=== PATIENT | female | born 1985 | race African-American/Black ===

== ENCOUNTER 2016-09-21 02:32 | Emergency (ER) ==
[2016-09-21 02:37] VITALS: BP 129/82
--- NOTE | 2016-09-21 02:45 | PROVIDER DOCUMENTATION ---
HPI-Female /OB/Breast - General Chief Complaint: UTI Symptoms Stated Complaint: UTI Time Seen by Provider: 09/21/16 02:44 Source: reports: patient (Patient is a 30 year old black female complaining of painful urination and lower abdomen pain for past 4 days. Denies fever.) Allergies/Adverse Reactions: Patient Allergies Allergy/AdvReac Type Severity Reaction Status Date / Time No Known Allergies Allergy Verified 09/21/16 02:55 - History of Present Illness-Female /OB Does patient report she is ?: No Review of Systems - Adult - REVIEW OF SYSTEMS - ADULT Constitutional: denies: chills, fever Eyes: reports: no symptoms reported Ears, Nose, Mouth & Throat: reports: no symptoms reported Cardiovascular: reports: no symptoms reported Respiratory: reports: no symptoms reported Gastrointestinal: reports: abdominal pain. denies: constipation, diarrhea, nausea, vomiting Genitourinary: reports: see HPI, dysuria, frequent UTI's, urgency Musculoskeletal: reports: see HPI. denies: back pain Integumentary: reports: no symptoms reported Neurological: reports: no symptoms reported Psychiatric: reports: no symptoms reported Endocrine: reports: no symptoms reported Hematologic/Lymphatic: reports: no symptoms reported Allergic/Immunologic: reports: no symptoms reported All Other Systems: Reviewed and Negative Past History - Adult - PAST MEDICAL HISTORY-ADULT Review of Records: reports: Old Records Reviewed, Nursing Assessment Review, Medications Reviewed, Social history reviewed & non-contributory. Major Childhood Illnesses: reports: denies history Cardiovascular: reports: denies history Respiratory: reports: denies history Gastrointestinal: reports: pancreatitis Obstetrical/Gynecological: reports: ovarian cysts Genitourinary: reports: denies history Musculoskeletal: reports: denies history Neurological: reports: denies history Endocrine/Immune: reports: denies history Other Conditions: reports: denies history - PRIOR SURGERIES/PROCEDURES Surgical/Procedure History: reports: none - PRIOR HOSPITALIZATIONS Prior Hospitalizations: reports: none - IMMUNIZATION STATUS Childhood Immunizations: See Nurse Assessment Flu Vaccine: See Nurse Assessment - FAMILY HISTORY Family History: reviewed, not pertinent Physical Exam-General - CONSTITUTIONAL General Appearance: appears well, alert - EYES Eyes: other (clear) - HEAD, EARS, NOSE, MOUTH & THROAT HENMT: moist mucous membranes - NECK Neck: non-tender, supple - RESPIRATORY Respiratory: lungs clear - CARDIOVASCULAR Cardiovascular: regular rate, rhythm - GASTROINTESTINAL (ABDOMEN) Abdominal Exam: soft, no organomegaly, no pulsatile mass, other (suprapubic tenderness) - GENITOURINARY Male Genitalia: deferred Rectal Exam: deferred - LYMPHATIC Lymphatic: no adenopathy - MUSCULOSKELETAL Back Exam: normal inspection, no CVA tenderness Extremity: normal range of motion, non-tender - SKIN Integumentary: normal color, normal turgor - NEUROLOGIC Neurologic: grossly normal - PSYCHIATRIC Psych/Mental Status: anxious Departure - Departure Time of Disposition Order: 03:20 DIAGNOSIS: Urethritis Disposition: HOME 01 Certified Medical Emergency: Emergent Condition: Stable Additional Instructions: plenty of fluids, take medication as prescribed Prescriptions: Doxycycline Hyclate 100 mg PO BID #14 capsule Phenazopyridine HCl [Pyridium] 100 mg PO TID PRN #21 tablet PRN Reason: Pain Referrals: None,PCP [Primary Care Provider] -
[2016-09-21 03:06] LABS: URINE MICRO REVIEW NEEDED? NO; URINE SOURCE CLEAN CATCH
[2016-09-21 03:09] LABS: BILIRUBIN URINE NEGATIVE (NEGATIVE); BLOOD URINE NEGATIVE (NEGATIVE); COLOR YELLOW; GLUCOSE URINE NEGATIVE (NEGATIVE); LEUKOCYTES URINE NEGATIVE (NEGATIVE); NITRITE URINE NEGATIVE (NEGATIVE); PH URINE 6.5; PROTEIN URINE NEGATIVE (NEGATIVE); SP GRAVITY URINE 1.007; TURBIDITY URINE HAZY (CLEAR); UROBILINOGEN URINE NORMAL (NORMAL)
[2016-09-21 03:10] LABS: UR EPITHELIAL CELLS <10 /HPF (<10); URINE BACTERIA 1+ /HPF; URINE RBC <10 /HPF (<10); URINE WBC <10 /HPF (<10)
[2016-09-21] MEDS ORDERED: PYRIDIUM PO ONE (03:13)
[2016-09-21] MEDS ORDERED: DOXYCYCLINE PO ONE (03:13)
== END 2016-09-21 03:22 | disposition home or self-care (01) ==
LOC: ED 02:32
DX: N34.2 Other urethritis (principal); R30.0 Dysuria; R10.30 Lower abdominal pain, unspecified; R39.15 Urgency of urination; R10.819 Abdominal tenderness, unspecified site; Z87.440 Personal history of urinary (tract) infections; Z87.42 Personal history of other diseases of the female genital tract
CPT/HCPCS: 81001; 99283